=== PATIENT | male | born 1940 | race Caucasian/White ===

== ENCOUNTER 2016-12-25 18:20 | Emergency (ER) | payer MEDICARE, OTHER ==
[2016-12-25] VITALS (10 sets, daily range): BP systolic 87–175; BP diastolic 56–87; PULSE 54–129; RESP 17–26; O2SAT 96–100
[2016-12-25] MEDS ORDERED: Succinylcholine Chloride 20 mg/mL 5 mL Inj ONE (18:21)
--- NOTE | 2016-12-25 18:23 | ED.REPORT ---
HPI-Seizure Date of Service Dec 25, 2016 ED Provider: Chapin Brand DO Pt is a 76 y.o. male with a hx of glioblastoma multiforme of brain, IV, on chemotherapy who presents to the ED via EMS after a witnessed seizure prior to arrival. Per EMS when they arrived pt was post-ictal and proceeded to have two additional seizures lasting 3-5 minutes en-route. They administered 10 versed en -route. Per family pt has no hx of seizure. Pt's states that pt had an episode of shaking yesterday. Prior to pt's witnessed seizure today he did not express any medical complaints. Pt is unable to provide a hx due to mental status. Nursing Notes Stated Complaint: SEIZURES Chief Complaint: Seizure Nursing Notes Reviewed: Yes Allergies: Coded Allergies: No Known Allergies (Unverified , 12/25/16) Scheduled Amlodipine (Amlodipine) 10 Mg Tablet 10 MG PO DAILY Ezetimibe/Simvastatin 10-20 mg (Vytorin 10-20 mg) 1 Each Tablet 1 TABLET PO DAILY Loperamide (Loperamide) 2 Mg Capsule 2 MG PO Q4H Miscellaneous Medications Telmisartan (Telmisartan) 40 Mg Tablet 40 MG PO General Time Seen by Provider: 18:23 Chief Complaint Chief Complaint: Seizure, generalized Hx Obtained From: Spouse, Daughter, EMS Unable to Obtain Hx: Patient condition, Mental status Arrived By: Ambulance Onset Occurred: Just prior to arrival Symptom Duration: 1 - 15 minutes Similar Sx Previous: No Past Medical History Past Medical History Glioblastoma multiforme of brain, IV HTN DM HLD Hx of prostate CA Past Surgical History Hernia repair Reports: Prostatectomy Social History Alcohol Use: In recovery Ambulatory Status Independent Review of Systems Unable to Obtain ROS Patient condition, Mental status Neurologic: Reports: Change LOC, Seizure, Shaking Complete sys rev & neg: except as marked. Physical Exam Physical Exam Notes: Initial Vital Signs Vital Signs (First) Date Time Temp Pulse Resp B/P Pulse Ox O2 Delivery O2 Flow Rate FiO2 12/25/16 18:23 37.4 129 20 154/76 98 Room Air 12/25/16 18:55 15 Initial VS: Reviewed Head / Eyes: Atraumatic, Normocephalic Skin: Warm, Dry, No cyanosis General/Constitutional: Well appearing, Well developed, Well hydrated, Well nourished Alertness: Positive: Sedated Appearance / Presentation: Positive: Obese Neck: Atraumatic Respiratory / Chest: Atraumatic, Breath sounds NL, Breath sounds = bilat, No respiratory distress, No rales, No rhonchi, No wheezing, No retractions, No stridor Appears to be protecting his airway Cardiovascular: Regular rhythm, Heart sounds NL, No gallop, No murmurs, No rubs , Peripheral circulation NL Heart Rate / Rhythm: Positive: Tachycardia No lower extremity edema Mental Status: Positive: Pharmacologically sedated GCS of 3 secondary to sedation Abdomen: Atraumatic, Soft, Non-tender, No distention Interpretation & Diagnostics Lab Results Interpretation Result Diagram: 12/25/16 1820 12/25/16 1820 Test 12/25/16 18:20 12/25/16 18:50 White Blood Count 18.6th/mm3 (3.8-10.1) Red Blood Count 4.76mil/mm3 (4.40-5.80) Hemoglobin 16.6g/dL (13.8-17.2) Hematocrit 49.8% (41.0-50.0) Mean Corpuscular Volume 104.6fL (81-100) Mean Corpuscular Hemoglobin 34.9pg (27.0-35.0) Mean Corpuscular Hemoglobin Concent 33.3% (32.0-37.0) Red Cell Distribution Width 12.7% (12.3-15.4) Platelet Count 514bil/L (150-400) Neutrophils (%) (Auto) 30% (40-74) Lymphocytes (%) (Auto) 62% (14-46) Monocytes (%) (Auto) 2% (4-12) Eosinophils (%) (Auto) 4% (0-5) Basophils (%) (Auto) 2% (0-3) Prothrombin Time 10.2sec (8.1-12.5) Prothromb Time International Ratio 0.95ratio Sodium Level 144mEq/L (134-144) Potassium Level 3.4mEq/L (3.5-5.2) Chloride Level 95mEq/L (97-108) Carbon Dioxide Level 8mmol/L (18-29) Blood Urea Nitrogen 10mg/dL (8-27) Creatinine 1.18mg/dL (0.76-1.27) Estimat Glomerular Filtration Rate 64mL/min (>59) Glucose Level 240mg/dL (60-99) Calcium Level 10.3mg/dL (8.5-10.1) Total Bilirubin 0.5mg/dL (0.0-1.2) Aspartate Amino Transf (AST/SGOT) 30U/L (0-50) Alanine Aminotransferase (ALT/SGPT) 39U/L (0-44) Alkaline Phosphatase 85U/L (25-160) Total Protein 7.3g/dL (6.4-8.4) Albumin 4.4g/dL (3.4-5.0) Alcohol, Quantitative < 10mg/dL (0-10) Urine Color Yellow (YELLOW) Urine Appearance Hazy (CLEAR,HAZY) Urine pH 5.5 (5.0-8.0) Urine Specific Potter 1.016 (1.003-1.035) Urine Protein 100mg/dL (NEG,TRACE) Urine Glucose (UA) Negativemg/dL (NEGATIVE) Urine Ketones Tracemg/dL (NEGATIVE) Urine Occult Blood Moderate (NEGATIVE) Urine Nitrite Negative (NEGATIVE) Urine Bilirubin Negative (NEGATIVE) Urine Urobilinogen Normalmg/dL (NORMAL) Urine Leukocyte Esterase Negative (NEGATIVE) Urine RBC 3-10/hpf (0-2) Urine WBC 0-5/hpf (0-5) Urine Epithelial Cells Few/hpf (NONE-MOD) Urine Crystals Amorphous urates (NONE Urine Bacteria None/hpf (NONE-FEW) Urine Hyaline Casts None/lpf (NONE) Urine Granular Casts None seen (NONE SEEN) Urine Waxy Casts None seen (NONE SEEN) Urine Red Blood Cell Casts None seen (NONE SEEN) Urine White Blood Cell Casts None seen (NONE SEEN) Urine Mucus None seen (None Seen) Urine Trichomonas None seen (NONE SEEN) Urine Yeast None (NONE SEEN) Urinalysis Comment None ECG Interpretation ECG Interpretation: No ST changes Time: 19:03 Interpreted by: ED physician Normal ECG Interpretation: Normal sinus rhythm Rhythm / Conduction: Tachycardia (116) Drug Screen / Level Interp Urine positive benzo X-Ray Chest Interpretation Chest Xray Interpretation: IMPRESSION: Bibasilar infiltrate or atelectasis. Dictated by: Noelle Grigsby M.D. on 12/25/2016 at 18:48 Approved by: Noelle Grigsby M.D. on 12/25/2016 at 18:49 CT Head Interpretation IMPRESSION: 1. Hyperdensities in the right frontal lobe suspicious for acute intracranial bleed. This finding is new compared to 02/17/2016. Comparison to more recent outside examinations, if available, would be helpful. 2. 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 ADDENDUM: In this patient with known brain tumor, the finding could be caused a bleeding mass or less likely a peripherally calcified mass. The result was discussed with Dr. Brand on 12/25/2016 at 2105 hours. Dictated by: Noelle Grigsby M.D. on 12/25/2016 at 19:33 Approved by: Noelle Grigsby M.D. on 12/25/2016 at 20:09 Procedures Intubation Time: 20:32 Procedure Performed by: ED physician, ED resident Consent / Setup / Site Prep: Consent from spouse, Time-out performed, Oxygen administered, Pulse oximeter applied, contract admin applied, Hand hygiene observed, Stand sterile technique Patient Position: Neutral position Blade / ET Tube / Route: [place] scope Procedural Sedation/Analgesia: Sedation: Etomidate Neuromuscular Agent: Succinylcholine ET Confirmation: Direct visualization Secured / Marked: ET tube device Complications: None Post-Procedure: Condition improved, Tolerated procedure well, Patient stable Re-Eval/Medical Decision Med Decision/Clinical Course 76-year-old male with a history of diabetes and glioblastoma stage IV presents after having a 3-5 minute seizure at home witnessed by his family. EMS arrived and witnessed 2 more seizures giving 5 mg of Versed between each one. Upon arrival patient has a GCS of 3 and is breathing on his own. EMS reported that he vomited 1. CT of the brain showed a right frontal lobe intracranial bleed. Discussed with patient's family is desirous and he does not want to be on long- term life support. Given that the treatability and prognosis of his current condition is uncertain and I am not an expert in this area they have elected to have him intubated and sent to a tertiary center for further evaluation and treatment. We discussed transfer to [facility] where he sees his neurosurgeon but upon discussion with a neurologist there they do not feel that the transfer would be appropriate as they do not have a neuro ICU. Care was discussed with a neurologist at [facility] who accepted the patient. Upon arrival he was slightly hypertensive with a systolic of 154 but this lowered to 120 systolic without treatment. He was loaded with Keppra 1500 mg 1 upon arrival. He was monitored for approximately 2 hours before he was intubated and his GCS remained 3 despite letting the Versed have time to wear off. There was copious amounts of secretion in the airway upon intubation. An 8.0 tube was easily passed into the airway. Post intubation film revealed the tube to be in stable position just 2 cm superior to the jaleel. After discussion with Dr. Oliveira I had our radiologist check the Hounsfield units on the bleed to confirm it was a bleed rather than a calcification and they also units were in the 60s confirming likely bleed. Patient's coags were normal as well as platelets. He was transferred via ALS ambulance to [facility] ER Source of Hx: Old records Re-Evaluation/Progress #1: Time of Eval: 19:04 Re-Evaluation/Progress Note: Pt rechecked. Family is now present, they state that he does not have his hearing aids in so he won't be responsive to commands. They report shaking yesterday. Re-Evaluation/Progress #2: Time of Eval: 20:20 Re-Evaluation/Progress Note: Pt rechecked. Discussed imaging results with family and need for transfer. Family understand and agree with plan. Family requests he be transferred to [facility] if possible. Discussed need to intubate, family understand and agree with plan. Re-Evaluation/Progress #3: Time of Eval: 21:20 Re-Evaluation/Progress Note: Informed family that pt was accepted for transfer at [facility], they understand and agree with plan. Consultation #1: Call Returned at: 20:34 Note: Discussed tx with Carlos, they recommend tx to [facility]. Consultation #2: Call Returned at: 20:46 Note: Discussed pt conditon and need for tx with Dr. Oliveira. They accept tx and do not want pt transferred by helicopter. Counseled Regarding: Diagnosis, Lab results, Need for follow-up, Need for admission Discharge & Departure Impression: Primary Impression: Seizure Additional Impressions: Intracranial bleeding Glioblastoma Leukocytosis Leukocytosis type: unspecified Qualified Code: D72.829 - Elevated white blood cell count, unspecified Hyperglycemia Disposition: Transfer, Acute Care Facility ([facility]) Receiving Hospital: [facility] Transfer Accepted: Yes Transfer Accepted at: 20:46 Transfer Reason: Higher level of care Patient Status: Stable for transfer Patient Informed: Unable (Family informed) Discharge Condition All VS Reviewed: Yes Condition: Stable Referrals: KHANH FELIZ MD (PCP) Crit Care Except Billable Proc Time Spent: 30-74 minutes Services Performed: Patient management by me, Time spent at bedside, Reviewing test results, Reviewing imaging, Discussing patient care, Documentation in record, Time with fam/surrogate Critical Care Notes: Patient required metformin undivided attention to provide lifesaving measures for his intracranial bleed, seizures and to manage his airway given his inability to protect it. Scribe Attestation Portions of this note were transcribed by Pascale Putnam. I, Dr. Brand personally performed the history, physical exam and medical decision-making; I reviewed and confirmed the accuracy of the information in the transcribed note. Signed by: Alicja Pedersen, 12/25/16 and 0000. copies to: KHANH FELIZ MD, Gary R DO Dec 25, 2016 18:23 PASCALE PUTNAM Dec 25, 2016 18:30
[2016-12-25] MEDS ORDERED: 0.9% Sodium Chloride 1,000 ML IV ONE (18:29)
[2016-12-25] MEDS ORDERED: levETIRAcetam Inj 1,500 MG in Dextrose 5% 100 ML IV ONE ×2 (18:30→18:45)
[2016-12-25] MEDS ORDERED: levETIRAcetam Inj 1,500 MG in 0.9% Sodium Chloride 100 ML IV ONE (18:45)
[2016-12-25 18:51] LABS: Mean Corpuscular Hemoglobin 34.9 pg (27.0-35.0); Mean Corpuscular Volume 104.6 fL (81-100); Platelet Count 514 bil/L (150-400)
--- NOTE | 2016-12-25 18:51 | DRSVH ---
PROCEDURE: X-RAY CHEST ONE VIEW, PORTABLE ([id number]) INDICATIONS: new seizure TECHNIQUE: One view of the chest was acquired. COMPARISON: [facility], CR, CHEST 1VW (PORTABLE), 02/17/2016, 15:42. FINDINGS: Surgical changes and devices: There is a left Port-A-Cath with tip projecting to the area of the SVC. Lungs and pleura: The lungs are small likely secondary to shallow inspiration. Bibasilar opacity may be infiltrate or atelectasis. No pleural effusions or pneumothorax. . Mediastinum: Mediastinal contours appear normal. Heart size is normal. Bones and chest wall: No suspicious bony lesions. Overlying soft tissues appear unremarkable. IMPRESSION: Bibasilar infiltrate or atelectasis. Dictated by: Noelle Grigsby M.D. on 12/25/2016 at 18:48 Approved by: Noelle Grigsby M.D. on 12/25/2016 at 18:49
[2016-12-25 19:04] LABS: INR 0.95 ratio
[2016-12-25 19:18] LABS: BASOPHILS % (AUTO) 2 % (0-3); EOSINOPHILS % (AUTO) 4 % (0-5); MONOCYTES % (AUTO) 2 % (4-12); NEUTROPHILS % (AUTO) 30 % (40-74)
[2016-12-25 19:32] LABS: APPEARANCE,URINE HAZY (CLEAR,HAZY); COLOR,URINE YELLOW (YELLOW); OCCULT BLOOD,URINE MODERATE (NEGATIVE); PH,URINE 5.5 (5.0-8.0); UROBILINOGEN,URINE NORMAL (NORMAL)
[2016-12-25] MEDS ORDERED: LOPE2CAP PO (19:56)
[2016-12-25] MEDS ORDERED: AMLO10TA3 PO (19:56)
[2016-12-25] MEDS ORDERED: TELM40TA4 PO (19:56)
[2016-12-25] MEDS ORDERED: EZET1TAB6 PO (19:56)
--- NOTE | 2016-12-25 20:11 | DRSVH ---
PROCEDURE: CT BRAIN WITHOUT CONTRAST ([id number]) INDICATIONS: new seizures, h/o brain ca TECHNIQUE: Noncontrast 4.5 mm thick angled axial sections acquired from the foramen magnum to the vertex, with c oronal reformats. COMPARISON: [facility], CT, BRAIN W/O CONTRAST, 02/17/2016, 15:29. FINDINGS: Image quality: Excellent. CSF spaces: Basal cisterns are patent. No extra-axial fluid collections. The ventricles are symmet william in size and shape. Brain: There are hypodensities suspicious for acute bleed in the right frontal lobe, new since the p rior examination. No mass effect or midline shift. There is encephalomalacia in the left temporal. T here is cerebral volume loss for age, with resultant ventricular and sulcal prominence. There are pe riventricular and deep white matter chronic small vessel ischemic changes. There is intracranial int ernal carotid artery atherosclerosis. Skull and face: There is a velvet hole in right frontal lobe. Calvarium and visualized facial bones ap pear intact, without suspicious lesions. Sinuses: Visualized sinuses and mastoids are clear. IMPRESSION: 1. Hyperdensities in the right frontal lobe suspicious for acute intracranial bleed. This finding is new compared to 02/17/2016. Comparison to more recent outside examinations, if available, would be hel pful. 2. 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 Dictated by: Noelle Grigsby M.D. on 12/25/2016 at 19:33 Approved by: Noelle Grigsby M.D. on 12/25/2016 at 20:09
[2016-12-25] MEDS ORDERED: Propofol 10,000 mCg/mL 100 mL Inj ONE (20:44)
[2016-12-25] MEDS ORDERED: Propofol Inj 1,000,000 MCG in IV Premix 1 EACH IV SCH (20:45)
[2016-12-25] MEDS ORDERED: fentaNYL-PF 50 mCg/mL 2 mL Inj IVPUSH ONE (20:50)
--- NOTE | 2016-12-25 21:09 | ABG ---
DateTimeAnalyzed 21:04:00 -_ pH ____7.321 - 7.350 7.450 pCO2 ___46.5__ -mmHg 35.0 45.0 pO2 124 -mmHg 69.0 116 HCO3- ___23.3__ -mmol/L ABE ___-2.6__ -mmol/L tHb ___15.7__ -g/dL O2Hb ___96.6__ -% COHb ____0.8__ -% MetHb ____1.1__ -% sO2 ___98.5__ -% FIO2 __100.0__ -% Drawn By LT - Date/Time Notified____ 21:08:00 -_ Notified Whom __ANDELIN - B 769 -mmHg tO2 ___21.4__ -Vol% Luis test _Positive -
--- NOTE | 2016-12-25 21:30 | DRSVH ---
PROCEDURE: X-RAY CHEST ONE VIEW, PORTABLE ([id number]) INDICATIONS: TUBE PLACEMENT, INTBATION TECHNIQUE: One view of the chest was acquired. COMPARISON: [facility], CR, XR CHEST 1VW (PORTABLE), 12/25/2016, 18:27. FINDINGS: Surgical changes and devices: An endotracheal tube is seen, with the tip 4 cm above the jaleel. A g astric tube is seen, with the tip not visible, yet traversing below the level of the diaphragm. A st able left-sided chest port is seen. Lungs and pleura: On this supine examination, no large pneumothorax or large pleural effusions are s een. No focal areas of lung consolidation are seen. Low lung volumes are noted. This causes a crowded appearance to the lung markings and limits evaluation. Mild, streaky opacities are seen at the lung bases. Mediastinum: Mediastinal contours appear normal. Heart size is normal. Bones and chest wall: No suspicious bony lesions. Overlying soft tissues appear unremarkable. IMPRESSION: The tip of the endotracheal tube is seen 4 cm above the jaleel. The tip of the gastric tube traverses below the level of the diaphragm. Low lung volumes. Atelectasis versus mild infiltrate seen at the lung bases. Dictated by: Stan Hernandez M.D. on 12/25/2016 at 20:27 Approved by: Stan Hernandez M.D. on 12/25/2016 at 20:28
== END 2016-12-25 22:19 | disposition short-term general hospital (02) ==
LOC: SED 18:20
DX: I62.9 Nontraumatic intracranial hemorrhage, unspecified (principal); R56.9 Unspecified convulsions; C71.9 Malignant neoplasm of brain, unspecified; D72.829 Elevated white blood cell count, unspecified; E11.65 Type 2 diabetes mellitus with hyperglycemia; I10 Essential (primary) hypertension; Z85.46 Personal history of malignant neoplasm of prostate; Z90.89 Acquired absence of other organs
CPT/HCPCS: 31500; 36415; 36620; 51702; 70450; 71010; 80053; 81001; 82375; 82803; 85025; 85610; 93005; 96361; 96374; 96375; 99291; G0480; J0330; J1953; J2060; J3010; J7030